=== PATIENT | male | born 1935 | race Caucasian/White ===

== ENCOUNTER 2023-10-10 15:47 | Emergency (ER) | payer OTHER ==
[~2023-10-10] VITALS: Ht 180.3 cm; Wt 90.7 kg
[2023-10-10 16:12] LABS: BASOPHILS ABSOLUTE AUTO 0.06 K/mm3 (0.00-0.23); BASOPHILS PERCENT AUTO 1 % (0-2); EOSINOPHILS ABSOLUTE AUTO 0.57 K/mm3 (0.00-0.68); EOSINOPHILS PERCENT AUTO 7 % (0-6); Hematocrit 31.8 % (37.0-53.0); Hemoglobin 10.8 g/dL (13.5-17.5); IMMATURE GRAN ABSOLUTE AUTO 0.09 K/mm3 (0.00-0.10); IMMATURE GRAN PERCENT AUTO 1 % (0-1); LYMPHOCYTES ABSOLUTE AUTO 1.75 K/mm3 (0.84-5.20); LYMPHOCYTES PERCENT AUTO 23 % (21-46); MONOCYTES ABSOLUTE AUTO 0.87 K/mm3 (0.16-1.47); MONOCYTES PERCENT AUTO 11 % (4-13); Mean Corpuscular HGB 34.7 pg (26.0-34.0); Mean Corpuscular Volume 102 fL (80-100); Mean Platelet Volume 9.3 fL (9.1-12.4); NEUTROPHILS ABSOLUTE AUTO 4.44 K/mm3 (1.96-9.15); NEUTROPHILS PERCENT AUTO 57 % (41-73); Platelet Count 240 K/mm3 (150-400); RDW Coefficient Variation 12.9 % (11.7-14.2); RDW Standard Deviation 48.2 fL (35.1-46.3); Red Blood Cell Count 3.11 M/mm3 (4.30-5.90); White Blood Cell Count 7.78 K/mm3 (4.00-11.30)
[2023-10-10 16:32] LABS: Albumin, Blood 3.1 g/dL (3.4-5.0); Bilirubin, Total 0.5 mg/dL (0.1-1.0); Bun/Creatinine Ratio 26.7 (12.0-20.0); Calcium, Blood 9.8 mg/dL (8.5-10.1); Creatinine, Blood 1.61 mg/dL (0.60-1.20); Globulin, Blood 3.2 g/dL (2.2-4.0); Potassium, Blood 3.9 mmol/L (3.5-5.5); Total Protein, Blood 6.3 g/dL (6.4-8.2)
[2023-10-10 17:54] VITALS: BP 183/53
== END 2023-10-10 18:08 | disposition home or self-care (01) ==
LOC: ER 15:47
PROVIDERS: Emergency Medicine
DX: R55 Syncope and collapse (principal); W01.0XXA Fall on same level from slipping, tripping and stumbling without subsequent striking against object, initial encounter
CPT/HCPCS: 80053; 84484; 85025; 93005; 93010; 99284-25

== ENCOUNTER 2024-03-14 20:08 | Emergency (ER) | payer OTHER ==
[~2024-03-14] VITALS: Ht 177.8 cm; Wt 90.7 kg
[2024-03-14 20:29] LABS: BASOPHILS ABSOLUTE AUTO 0.07 K/mm3 (0.00-0.23); BASOPHILS PERCENT AUTO 1 % (0-2); EOSINOPHILS ABSOLUTE AUTO 0.39 K/mm3 (0.00-0.68); EOSINOPHILS PERCENT AUTO 5 % (0-6); Hematocrit 27.2 % (37.0-53.0); Hemoglobin 9.5 g/dL (13.5-17.5); IMMATURE GRAN ABSOLUTE AUTO 0.08 K/mm3 (0.00-0.10); IMMATURE GRAN PERCENT AUTO 1 % (0-1); LYMPHOCYTES ABSOLUTE AUTO 1.62 K/mm3 (0.84-5.20); LYMPHOCYTES PERCENT AUTO 20 % (21-46); MONOCYTES ABSOLUTE AUTO 0.79 K/mm3 (0.16-1.47); MONOCYTES PERCENT AUTO 10 % (4-13); Mean Corpuscular HGB 36.1 pg (26.0-34.0); Mean Corpuscular HGB Conc 34.9 g/dL (31.5-36.5); Mean Corpuscular Volume 103 fL (80-100); Mean Platelet Volume 8.8 fL (9.1-12.4); NEUTROPHILS ABSOLUTE AUTO 5.06 K/mm3 (1.96-9.15); NEUTROPHILS PERCENT AUTO 63 % (41-73); Platelet Count 260 K/mm3 (150-400); RDW Coefficient Variation 12.7 % (11.7-14.2); Red Blood Cell Count 2.63 M/mm3 (4.30-5.90); White Blood Cell Count 8.01 K/mm3 (4.00-11.30)
[2024-03-14] MEDS ORDERED: LOPE2C PO (20:31)
[2024-03-14] MEDS ORDERED: FOLI1 PO (20:32)
[2024-03-14] MEDS ORDERED: GUAI600T33 PO (20:32)
[2024-03-14] MEDS ORDERED: BUDESONIDE EC3 M1 PO (20:34)
[2024-03-14] MEDS ORDERED: VITAMIN D32000 UNI1 PO (20:35)
[2024-03-14] MEDS ORDERED: B-12500 MC2 PO (20:36)
[2024-03-14] MEDS ORDERED: ASCO500 PO (20:36)
[2024-03-14 20:48] LABS: Albumin, Blood 3.3 g/dL (3.4-5.0); Albumin/Globulin Ratio 1.1 (0.8-1.8); Bilirubin, Total 0.3 mg/dL (0.1-1.0); Bun/Creatinine Ratio 28.5 (12.0-20.0); Calcium, Blood 8.7 mg/dL (8.5-10.1); Creatinine, Blood 1.58 mg/dL (0.60-1.20); Globulin, Blood 2.9 g/dL (2.2-4.0); Potassium, Blood 4.3 mmol/L (3.5-5.5); Total Protein, Blood 6.2 g/dL (6.4-8.2)
[2024-03-14] MEDS ORDERED: Acetaminophen 500 MG Tab PO ONE (23:05)
[2024-03-14 23:25] VITALS: BP 145/69
== END 2024-03-14 23:27 | disposition home or self-care (01) ==
LOC: ER 20:08
PROVIDERS: Emergency Medicine
DX: S51.811A Laceration without foreign body of right forearm, initial encounter (principal); S00.01XA Abrasion of scalp, initial encounter; W18.30XA Fall on same level, unspecified, initial encounter; Z88.8 Allergy status to other drugs, medicaments and biological substances; Z79.899 Other long term (current) drug therapy; I10 Essential (primary) hypertension
CPT/HCPCS: 70450; 72125; 73080; 73110; 80053; 85025; 93005; 93010; 99285-25; A9270

== ENCOUNTER 2024-10-28 13:29 | Emergency (ER) | payer OTHER ==
[~2024-10-28] VITALS: Ht 167.6 cm; Wt 70.3 kg
[~2024-10-28 13:29] MED LIST: ASCO500 PO; B-12500 MC2 PO; BUDESONIDE EC3 M1 PO; FOLI1 PO; GUAI600T33 PO; LOPE2C PO; VITAMIN D32000 UNI1 PO
[2024-10-28 14:11] LABS: BASOPHILS ABSOLUTE AUTO 0.06 K/mm3 (0.00-0.23); BASOPHILS PERCENT AUTO 1 % (0-2); EOSINOPHILS ABSOLUTE AUTO 0.53 K/mm3 (0.00-0.68); EOSINOPHILS PERCENT AUTO 8 % (0-6); Hematocrit 30.2 % (37.0-53.0); Hemoglobin 10.4 g/dL (13.5-17.5); IMMATURE GRAN ABSOLUTE AUTO 0.07 K/mm3 (0.00-0.10); IMMATURE GRAN PERCENT AUTO 1 % (0-1); LYMPHOCYTES ABSOLUTE AUTO 1.19 K/mm3 (0.84-5.20); LYMPHOCYTES PERCENT AUTO 17 % (21-46); MONOCYTES ABSOLUTE AUTO 0.84 K/mm3 (0.16-1.47); MONOCYTES PERCENT AUTO 12 % (4-13); Mean Corpuscular HGB 35.7 pg (26.0-34.0); Mean Corpuscular HGB Conc 34.4 g/dL (31.5-36.5); Mean Corpuscular Volume 104 fL (80-100); Mean Platelet Volume 9.2 fL (9.1-12.4); NEUTROPHILS ABSOLUTE AUTO 4.42 K/mm3 (1.96-9.15); NEUTROPHILS PERCENT AUTO 62 % (41-73); Platelet Count 315 K/mm3 (150-400); RDW Coefficient Variation 13.3 % (11.7-14.2); RDW Standard Deviation 50.5 fL (35.1-46.3); Red Blood Cell Count 2.91 M/mm3 (4.30-5.90); White Blood Cell Count 7.11 K/mm3 (4.00-11.30)
[2024-10-28 14:35] LABS: Albumin, Blood 3.1 g/dL (3.4-5.0); Bilirubin, Total 0.3 mg/dL (0.1-1.0); Bun/Creatinine Ratio 31.7 (12.0-20.0); Calcium, Blood 9.7 mg/dL (8.5-10.1); Creatinine, Blood 1.61 mg/dL (0.60-1.20); Globulin, Blood 3.2 g/dL (2.2-4.0); Potassium, Blood 4.2 mmol/L (3.5-5.5); Total Protein, Blood 6.3 g/dL (6.4-8.2)
[2024-10-28 18:10] LABS: Source, Urine Clean Catch
[2024-10-28 18:16] LABS: Appearance, Urine Clear (Clear); Bilirubin, Urine Neg (Neg); Blood, Urine 5+ (Neg); Color, Urine Yellow (P-Yellow); Glucose Qualitative, Urine Neg (Neg); Ketones, Urine Neg (Neg); Leukocyte Esterase, Urine 1+ (Neg); Nitrite, Urine Neg (Neg); Protein, Urine 2+ (Neg); Urobilinogen, Urine NORM (Normal)
[2024-10-28 18:23] LABS: Bacteria Few /hpf; Red Blood Cells, Urine 25-50 /hpf (0-2); Squamous Epithelial Cells Not Seen /hpf (Few); Transitional Epithelial Cells Rare /hpf (0-Rare)
[2024-10-28 18:30] VITALS: BP 194/75
[2024-10-28] MEDS ORDERED: Cephalexin Monohydrate 500 MG Cap PO ONE (18:35)
[2024-10-28] MEDS ORDERED: CEPH500 PO (18:36)
== END 2024-10-28 18:55 | disposition home or self-care (01) ==
LOC: ER 13:29
PROVIDERS: Physician Assistant
DX: R51.9 Headache, unspecified (principal); M54.2 Cervicalgia; C64.9 Malignant neoplasm of unspecified kidney, except renal pelvis; I10 Essential (primary) hypertension; F03.90 Unspecified dementia, unspecified severity, without behavioral disturbance, psychotic disturbance, mood disturbance, and anxiety; Z88.8 Allergy status to other drugs, medicaments and biological substances; Z79.51 Long term (current) use of inhaled steroids; Z79.899 Other long term (current) drug therapy
CPT/HCPCS: 70450; 80053; 81001; 85025; 87086; 93005; 93010; 93880; 99284-25; A9270

== ENCOUNTER 2024-10-31 21:09 | Inpatient (IN) | payer OTHER ==
[~2024-10-31] VITALS: Ht 175.3 cm; Wt 80.1 kg
[~2024-10-31 21:09] MED LIST changes: +CEPH500 PO
[2024-10-31 22:32] LABS: BASOPHILS ABSOLUTE AUTO 0.08 K/mm3 (0.00-0.23); BASOPHILS PERCENT AUTO 1 % (0-2); EOSINOPHILS ABSOLUTE AUTO 0.11 K/mm3 (0.00-0.68); EOSINOPHILS PERCENT AUTO 1 % (0-6); Hematocrit 32.3 % (37.0-53.0); Hemoglobin 10.9 g/dL (13.5-17.5); IMMATURE GRAN ABSOLUTE AUTO 0.14 K/mm3 (0.00-0.10); IMMATURE GRAN PERCENT AUTO 1 % (0-1); LYMPHOCYTES ABSOLUTE AUTO 1.21 K/mm3 (0.84-5.20); LYMPHOCYTES PERCENT AUTO 11 % (21-46); MONOCYTES ABSOLUTE AUTO 1.17 K/mm3 (0.16-1.47); MONOCYTES PERCENT AUTO 10 % (4-13); Mean Corpuscular HGB 35.2 pg (26.0-34.0); Mean Corpuscular HGB Conc 33.7 g/dL (31.5-36.5); Mean Corpuscular Volume 104 fL (80-100); NEUTROPHILS ABSOLUTE AUTO 8.77 K/mm3 (1.96-9.15); NEUTROPHILS PERCENT AUTO 76 % (41-73); Platelet Count 353 K/mm3 (150-400); RDW Coefficient Variation 13.7 % (11.7-14.2); RDW Standard Deviation 51.7 fL (35.1-46.3); White Blood Cell Count 11.48 K/mm3 (4.00-11.30)
[2024-10-31 23:53] LABS: Albumin/Globulin Ratio 0.9 (0.8-1.8); Bilirubin, Total 0.4 mg/dL (0.1-1.0); Bun/Creatinine Ratio 37.8 (12.0-20.0); Calcium, Blood 10.5 mg/dL (8.5-10.1); Creatinine, Blood 1.43 mg/dL (0.60-1.20); Globulin, Blood 3.5 g/dL (2.2-4.0); Potassium, Blood 4.2 mmol/L (3.5-5.5); Total Protein, Blood 6.5 g/dL (6.4-8.2)
[2024-11-01] LABS: Influenza A, PCR NEGATIVE (NEGATIVE); Influenza B, PCR NEGATIVE (NEGATIVE); Resp Syncytial Virus, PCR NEGATIVE (NEGATIVE); SARS-Cov-2 (COVID-19) PCR, MMC NEGATIVE (NEGATIVE)
[2024-11-01] MEDS ORDERED: NS 1,000 ML IV SCH ×2 (00:25→01:40)
[2024-11-01] MEDS ORDERED: FLU VACC TS2024-25(6MOS UP)/PF 45 MCG/0.5 ML SYRINGE IM ONE (01:35)
[2024-11-01] MEDS ORDERED: Acetaminophen 325 MG TABLET PO PRN (01:35)
[2024-11-01] MEDS ORDERED: Ondansetron HCl 2 MG / ML 2ML Vial IV PRN (01:40)
[2024-11-01] MEDS ORDERED: CefTRIAXone Sodium 1,000 MG in NS 100 ML IV SCH (01:47)
[2024-11-01] MEDS ORDERED: QUEtiapine Fumarate 50 MG TAB PO SCH (01:52)
[2024-11-01 06:00] LABS: Albumin, Blood 2.9 g/dL (3.4-5.0); Bilirubin, Total 0.4 mg/dL (0.1-1.0); Bun/Creatinine Ratio 37.1 (12.0-20.0); Calcium, Blood 10.1 mg/dL (8.5-10.1); Creatinine, Blood 1.43 mg/dL (0.60-1.20); Globulin, Blood 2.9 g/dL (2.2-4.0); Potassium, Blood 3.8 mmol/L (3.5-5.5); Total Protein, Blood 5.8 g/dL (6.4-8.2)
[2024-11-01 06:04] LABS: BASOPHILS ABSOLUTE AUTO 0.09 K/mm3 (0.00-0.23); BASOPHILS PERCENT AUTO 1 % (0-2); EOSINOPHILS ABSOLUTE AUTO 0.04 K/mm3 (0.00-0.68); EOSINOPHILS PERCENT AUTO 1 % (0-6); Hematocrit 33.2 % (37.0-53.0); Hemoglobin 11.4 g/dL (13.5-17.5); IMMATURE GRAN ABSOLUTE AUTO 0.09 K/mm3 (0.00-0.10); IMMATURE GRAN PERCENT AUTO 1 % (0-1); LYMPHOCYTES ABSOLUTE AUTO 1.35 K/mm3 (0.84-5.20); LYMPHOCYTES PERCENT AUTO 16 % (21-46); MONOCYTES ABSOLUTE AUTO 0.93 K/mm3 (0.16-1.47); MONOCYTES PERCENT AUTO 11 % (4-13); Mean Corpuscular HGB 35.5 pg (26.0-34.0); Mean Corpuscular HGB Conc 34.3 g/dL (31.5-36.5); Mean Corpuscular Volume 103 fL (80-100); NEUTROPHILS ABSOLUTE AUTO 6.21 K/mm3 (1.96-9.15); NEUTROPHILS PERCENT AUTO 71 % (41-73); RDW Coefficient Variation 13.8 % (11.7-14.2); RDW Standard Deviation 51.8 fL (35.1-46.3); Red Blood Cell Count 3.21 M/mm3 (4.30-5.90); White Blood Cell Count 8.71 K/mm3 (4.00-11.30)
[2024-11-01 07:10] LABS: Source, Urine Clean Catch
[2024-11-01 07:16] LABS: Appearance, Urine Hazy (Clear); Bilirubin, Urine Neg (Neg); Blood, Urine 5+ (Neg); Glucose Qualitative, Urine Neg (Neg); Ketones, Urine Neg (Neg); Leukocyte Esterase, Urine 1+ (Neg); Nitrite, Urine Neg (Neg); Protein, Urine 2+ (Neg); Specific Gravity, Urine 1.015 (1.003-1.022); Urobilinogen, Urine NORM (Normal)
[2024-11-01 07:33] LABS: Color, Urine Pale Yellow (P-Yellow)
[2024-11-01 07:40] LABS: Bacteria Many /hpf; Squamous Epithelial Cells Rare /hpf (Few)
[2024-11-01 07:42] LABS: Amorphous Light (0-Heavy); Mucus Light (0-Heavy)
[2024-11-01 07:43] LABS: Renal Epithelial Mod /hpf (0-Rare)
[2024-11-01] MEDS ORDERED: FINA5 PO (08:13)
[2024-11-01] MEDS ORDERED: FURO40 PO (08:14)
[2024-11-01] MEDS ORDERED: Diovan320 MG PO (08:15)
[2024-11-01] MEDS ORDERED: Carvedilol12.5 MG PO (08:16)
[2024-11-01] MEDS ORDERED: ALLO300 PO (08:17)
[2024-11-01] MEDS ORDERED: GABA100 PO (08:17)
[2024-11-01] MEDS ORDERED: OMEGA-3 FISH O1 EA21 PO (08:18)
[2024-11-01] MEDS ORDERED: NIAC500 PO (08:18)
[2024-11-01] MEDS ORDERED: Vitamin D1000 UNI1 PO (08:19)
[2024-11-01] MEDS ORDERED: Aspir 8181 MG PO (08:20)
[2024-11-01] MEDS ORDERED: TRAM50 PO (08:22)
[2024-11-01] MEDS ORDERED: DONEPEZIL HCL10 MG PO (08:22)
[2024-11-01] MEDS ORDERED: CHLO25B PO (08:23)
[2024-11-01] MEDS ORDERED: SERT50 PO (08:23)
[2024-11-01] MEDS ORDERED: FAMO20 PO (08:23)
[2024-11-01] MEDS ORDERED: Enoxaparin 40 MG/0.4 ML SYR SC SCH (09:00)
[2024-11-01] MEDS ORDERED: Polyethylene Glycol 3350 17 gm PO SCH (12:00)
[2024-11-01 12:49] VITALS: BP 169/74
[2024-11-01] MEDS ORDERED: Tamsulosin HCl 0.4 MG Cap PO SCH (13:00)
[2024-11-01] MEDS ORDERED: ALBU90OI INH (13:34)
[2024-11-01] MEDS ORDERED: Hytrin2 MG PO (13:37)
[2024-11-01] MEDS ORDERED: AMLO10 PO (13:37)
[2024-11-01] MEDS ORDERED: LIDO700A20 TOP (13:38)
[2024-11-01] MEDS ORDERED: RED YEAST RICE55 MG PO (13:38)
[2024-11-01 16:22] VITALS: BP 164/74
[2024-11-01] MEDS ORDERED: Furosemide 10 MG/ML 4ML Vial IV SCH (17:00)
--- NOTE | 2024-11-01 17:49 | NUR ---
1237- PT ARRIVED ON MEDICAL FLOOR IN STABLE CONDITION.
--- NOTE | 2024-11-01 17:49 | NUR ---
1130- RECEIVED REPORT FROM BERNARDO BONILLA RN.
--- NOTE | 2024-11-01 18:33 | NUR ---
SUMMARY- AAOX1. PALA. NO COMPLAINTS OF PAIN. X3 EPISODES OF BIGEMINY THIS SHIFT. MD HERRERA AWARE. DE LA TORRE PLACED FOR ACUTE RETENTION. BEDREST. PT ON 2L DUE TO LABORED BREATHING.
[2024-11-01 22:12] VITALS: BP 128/75
[2024-11-01] MEDS ORDERED: LORazepam 2 MG/ML 1ML Injection IV ONE (22:20)
[2024-11-01] MEDS ORDERED: DiphenhydrAMINE HCl 50 MG/ML 1ML Vial IV ONE (22:20)
[2024-11-01] MEDS ORDERED: Donepezil HCl 5 MG Tab PO SCH (22:20)
[2024-11-01 23:08] VITALS: BP 151/116
--- NOTE | 2024-11-01 23:14 | NUR ---
NOTIFIED BY DESIGNER/WRITER THAT PT HR SINUS TACH IN 130'S-140'S. PT ATTEMPTING OOB CONTINOUSLY. BP STABLE, BUT HR 140'S WHEN VS CHECKED. HOSPITALIST NOTIFIED AND ORDERS GIVEN FOR ATIVAN IV 1 MG X 1, AND BENADRYL IV 15 MG X 1 TO HELP CALM PT DOWN, THEN REASSESS VS.
--- NOTE | 2024-11-01 23:16 | NUR ---
AFTER GIVING PT IV ATIVAN/BENADRYL TO CALM AGITATION. PT HR CONTINUES TO BE SINUS TACH IN 130'S-140'S AND BP INCREASEED TO 155/116 WITH PT CONTINUING TO ATTEMPT OOB UNSAFE. PT O2 98% ON 2L/NC. HOSPITALIST NOTIFIED OF CHANGES AND WILL REVIEW CHART FOR FURTHER INTERVENTIONS.
[2024-11-01] MEDS ORDERED: Haloperidol Lactate Inj. 5 MG/ML Injection IV ONE (23:30)
[2024-11-02] VITALS (19 sets, daily range): BP systolic 88–167; BP diastolic 51–108
[2024-11-02] MEDS ORDERED: LORazepam 2 MG/ML 1ML Injection IV ONE
[2024-11-02] MEDS ORDERED: NS 1,000 ML IV SCH (00:25)
[2024-11-02 00:30] LABS: Base Excess Venous 0 mmol/L; Bicarbonate Venous 24.6 mmol/L (24.0-30.0); PCO2 Venous 38.2 mmHg (38-42); pH Blood Venous 7.42 (7.34-7.37)
[2024-11-02 00:40] LABS: BASOPHILS ABSOLUTE AUTO 0.09 K/mm3 (0.00-0.23); BASOPHILS PERCENT AUTO 1 % (0-2); EOSINOPHILS ABSOLUTE AUTO 0.12 K/mm3 (0.00-0.68); EOSINOPHILS PERCENT AUTO 1 % (0-6); Hematocrit 31.9 % (37.0-53.0); Hemoglobin 10.7 g/dL (13.5-17.5); IMMATURE GRAN ABSOLUTE AUTO 0.13 K/mm3 (0.00-0.10); IMMATURE GRAN PERCENT AUTO 1 % (0-1); LYMPHOCYTES ABSOLUTE AUTO 1.47 K/mm3 (0.84-5.20); LYMPHOCYTES PERCENT AUTO 11 % (21-46); MONOCYTES PERCENT AUTO 15 % (4-13); Mean Corpuscular HGB 34.7 pg (26.0-34.0); Mean Corpuscular HGB Conc 33.5 g/dL (31.5-36.5); Mean Corpuscular Volume 104 fL (80-100); Mean Platelet Volume 9.5 fL (9.1-12.4); NEUTROPHILS ABSOLUTE AUTO 9.41 K/mm3 (1.96-9.15); NEUTROPHILS PERCENT AUTO 72 % (41-73); Platelet Count 355 K/mm3 (150-400); RDW Standard Deviation 52.5 fL (35.1-46.3); Red Blood Cell Count 3.08 M/mm3 (4.30-5.90); White Blood Cell Count 13.12 K/mm3 (4.00-11.30)
[2024-11-02 00:59] LABS: Albumin, Blood 2.8 g/dL (3.4-5.0); Albumin/Globulin Ratio 0.9 (0.8-1.8); Bilirubin, Total 0.3 mg/dL (0.1-1.0); Bun/Creatinine Ratio 33.7 (12.0-20.0); Calcium, Blood 10.3 mg/dL (8.5-10.1); Creatinine, Blood 1.84 mg/dL (0.60-1.20); Globulin, Blood 3.1 g/dL (2.2-4.0); Magnesium, Blood 2.2 mg/dL (1.6-2.4); Potassium, Blood 3.8 mmol/L (3.5-5.5); Total Protein, Blood 5.9 g/dL (6.4-8.2)
--- NOTE | 2024-11-02 01:42 | NUR ---
GAVE REPORT TO [facility] 09 NURSE @ 0140.
--- NOTE | 2024-11-02 01:43 | NUR ---
DR MACEDO CAME TO ASSESS PT AND WANTED CLARIFICATION ABOUT CODE STATUS DUE TO FULL CODE CURRENTLY. CONTACTED PT DAUGHTER IN LAW GARCIA AND SON MICHELLE ABOUT CHANGE IN PT STATUS, PT SON MICHELLE WANTS PT TO BE DNR AT THIS TIME. PT IS ON FACE SHEET AND SON IS NOT. DR MIKE NOTIFIED AND PT CHANGED TO DNR AND WILL TRANSFER TO PCU 09.
--- NOTE | 2024-11-02 02:15 | NUR ---
received pt to room 9 from medical floor, pt drowsy, when awake, pt is agitated. pt placed on bipap, pt attempting to remove. full body audit reveals scabs to both arms, sanches in place draining clear, yellow urine. pts heart rate in the 120's, will continue to monitor
--- NOTE | 2024-11-02 02:24 | NUR ---
CALLED PT DAUGHTER IN LAW GARCIA PACE TO NOTIFY HER AND PT SON MICHELLE THAT THE PT HAD BEEN TRANSFERRED TO PCU 09 AND NUMBER TO CALL CHARGE NURSE STATION.
[2024-11-02] MEDS ORDERED: NS 1,000 ML IV ONE (02:38)
--- NOTE | 2024-11-02 02:38 | NUR ---
TRANSFERRED PT TO [facility] 09 @ 0210 WITH ALL BELONGINGS ON NON REBREATHER @ 4L. RT BRINGING BIPAP V60 SEPERATELY.
--- NOTE | 2024-11-02 02:57 | NUR ---
RAPID RESPONSE CALLED DUE TO SOFT B/P, DR. BARRAZA AND HELLEN IN ROOM, ICU CHARGE NURSE DOMINGO, RESPIRATORY THERAPY IN ROOM. MANUAL B/P 92/58,EKG COMPLETED STAT CHEST X RAY ORDERED, CURRENT BLOOD PRESSURE 122/79, 18 GAUGE IV STARTED, NO IV BOLUS AT THIS TIME PER ORDER UNTIL CHEST XRAY IS READ. PT ALERT AT INTERVALS, WILL CONTINUE TO MONITOR,BI PAP REMAINS IN PLACE
--- NOTE | 2024-11-02 04:20 | NUR ---
PT REFUSING TO KEEP BIPAP ON, PT PLACED ON O2 AT 2 LITERS VIA NASAL CANNULA, O2 SAT 98% AT THIS TIME, WILL CONTINUE TO MONITOR
[2024-11-02 05:17] LABS: Albumin, Blood 2.9 g/dL (3.4-5.0); Albumin/Globulin Ratio 0.9 (0.8-1.8); Bilirubin, Total 0.4 mg/dL (0.1-1.0); Bun/Creatinine Ratio 30.4 (12.0-20.0); Calcium, Blood 10.4 mg/dL (8.5-10.1); Creatinine, Blood 2.04 mg/dL (0.60-1.20); Globulin, Blood 3.2 g/dL (2.2-4.0); Magnesium, Blood 2.2 mg/dL (1.6-2.4); Potassium, Blood 3.9 mmol/L (3.5-5.5); Total Protein, Blood 6.1 g/dL (6.4-8.2)
--- NOTE | 2024-11-02 05:58 | NUR ---
PT ALERT AND ATTEMPTING TO GET OOB, PT EXTREMELY HARD OF HEARING, PTS SISTER IN LAW CALLED FLOOR, UPDATED REGARDING PTS CONDITION. SHE STATES PT DOES NOT TALK, THAT HE HAS SEVERE STUTTERING AND RARELY SAYS A SENTENCE. WILL PASS ON TO AM NURSE. PT REMAINS TACHYCARDIC. O2 AT [address] WITH SATS BETWEEN 96% AND 98%. BED ALARM IN PLACE, WILL CONTINUE TO MONITOR
[2024-11-02] MEDS ORDERED: Enoxaparin 30 MG/0.3 ML SYR SC SCH (09:00)
[2024-11-02] MEDS ORDERED: QUEtiapine Fumarate 25 MG Tab PO PRN (09:05)
[2024-11-02] MEDS ORDERED: TraMADol HCl 50 MG Tab PO PRN (09:15)
[2024-11-02] MEDS ORDERED: Bumetanide 0.25 MG/ML 4ML ViaL IV SCH ×2 (10:00→18:00)
[2024-11-02] MEDS ORDERED: Lidocaine 4% 1 Patch TOP PRN (10:10)
[2024-11-02] MEDS ORDERED: Albuterol HFA200 ACT/6.7 GM INH INH PRN (10:10)
[2024-11-02 14:27] LABS: CHOL/HDL RATIO 5.8; Cholesterol 187 mg/dL (50-200); Free Thyroxine 1.06 ng/dL (0.70-1.60); HDL Cholesterol 32 mg/dL (>39); LDL/HDL RATIO 3.8; Low Density Lipoprotein Chol 122 mg/dL (0-110); Triglycerides 167 mg/dL (30-160); Triiodothyronine, Free 2.06 pg/mL (2.18-3.98); Very Low Density Lipoprot Chol 33 mg/dL (6-32)
--- NOTE | 2024-11-02 16:11 | NUR ---
SPOKE WITH PT'S STU TODAY BY PHONE. SHE TELLS ME THE PATIENT HAS A DEMENTIA DIAGNOSIS WELL KIDNEY CANCER. SHE STATES THE PATIENT TOLD HER A FEW DAYS AGO THAT HE DOESN'T HAVE LONG TO LIVE. STU STATES THIS IS SOMETHING SHE HAS ALSO BEEN WONDERING ABOUT, THE CHANGES HAVE BEEN SO DRAMATIC. SHE STATES SHE ISN'T SURE IF SHE CAN CONTINUE CARING FOR HIM IF HE DOESN'T IMPROVE DRAMATICALLY. WE TALKED ABOUT HOSPICE AN OPTION IF HE CONTINUES TO DECLINE, [facility]. PT IS SUPPOSED TO HAVE [facility] THIS SATURDAY AT [facility], BUT THAT SEEMS UNLIKELY AT THIS TIME. PLAN TO CALL STU AGAIN TOMORROW WITH AN UPDATE. CM, CHARGE NURSE AND PHYSICIAN UPDATED.
[2024-11-02] MEDS ORDERED: Carvedilol 6.25 MG Tab PO SCH (17:00)
--- NOTE | 2024-11-02 17:59 | NUR ---
EOS: PATIENT AT ROUGHLY 1640 WHEN SISTER IN LAW CAME TO VISIT PATIENT BEGAN SLOWLY WAKING UP FROM HIS SOMULENT STATE. PATIENT HAS BEEN A/O TO SELF PLACE PERSON YEAR ABLE TO FOLLOW COMMANDS ABLE TO MOVE ALL EXTREMES HOWEVER VERY WEAK. PATIENT WAS ABLE TO TAKE PILLS VIA APPLESAUCE 1 AT A TIME, IS EXTREMELY HARD OF HEARING. HOSPITALIST WITH INCREASED BUMEX ORDER. TOELRATED ROUGHLY 45% OF MEAL. TOLERATED THIN LIQUIDS VIA STRAW, ALL ORAL INTAKE OBSERVED AND GIVEN BY STAFF. DESPITE PREIVOUS DIURETIC DECREASED URINE OUTPUT BUT OXYGENATION WENT FROM .5L TO RA. CRITICAL TROP OF 7113 DR. GIPSON REPORTED NO NEED TO TREND. DR. HERRERA ALSO AAWRE.
[2024-11-02] MEDS ORDERED: Doxazosin Mesylate 2 MG Tab PO SCH (21:00)
[2024-11-02] MEDS ORDERED: Famotidine 20 MG Tab PO SCH (21:00)
[2024-11-02] MEDS ORDERED: Gabapentin 100 MG Cap PO SCH (21:00)
--- NOTE | 2024-11-02 21:38 | NUR ---
ASSUMPTION OF CARE THIS RN ASSUMED CARE OF PATIENT AT 1900. AROUND 1930 THIS RN WAS ALERTED THAT PATIENT HAD JUST ASPIRATED ON HIS WATER WITH O2 DROPPING DOWN TO THE 70'S, PT WAS PLACED ON 8L VIA [place] NC. AT TIME OF THIS RN ENTERING ROOM PT WAS COUGHING AND BEING SUCTIONED BY REPAIRER ENGINE PRODUCTION. COARSE CRACKLES NOTED T/O. PT BOOSTED AND SAT UP AT 90 DEGREES. AT BEDSIDE. EDUCATED AND PATIENT. PATIENT ALERT AND ORIENTED X2 TO SELF/PLACE. PT THOUGHT THAT WAS HIS MOM. NO TELE EVENTS NOTED, PT CONTINUES TO BE IN SR WITH 1ST DEGREE HB AND BBB IN THE 60'S. BP STABLE. BIPAP AT BEDSIDE. AROUND 2099 PT NOTED TO HAVE IMPROVED WOB WITH CONTINUED TACHYPNEA, TITRATED O2 DOWN TO 1L WITH SPO2 >92%. LS IMPROVED T/O, ONLY MILD CRACKLES NOTED. PT GIVEN MEDS CRUSHED IN APPLESAUCE AND DID WELL. NO THIN LIQUIDS AT THIS TIME. PT EDUCATED. ORAL CARE DONE AFTER APPLESAUCE. PT REPOSITIONED. SCD'S IN PLACE. PILLOWS UNDER LEGS/HIPS/ARMS. SITTER REMAINS AT BEDSIDE. BED ALARM ON. BED IN LOWEST POSITION AND CALL LIGHT WITHIN REACH.
[2024-11-03] VITALS (8 sets, daily range): BP systolic 101–145; BP diastolic 58–83
--- NOTE | 2024-11-03 04:30 | NUR ---
SHIFT SUMMARY SEE PREVIOUS NOTE. PT NOW ON RA WITH SPO2 >92%. LS CLEAR IN UPPERS AND DIM IN BASES. SR WITH 1ST DEGREE HB BBB, HR 70'S. BP STABLE. AFEBRILE. TACHYPNEA NOTED. BIPAP ON STANDBY. PT A&O X0-2. LETHARGIC AT TIMES. MUMBLES ANSWERS THAT ARE NOT ALWAYS UNDERSTANDABLE. SITTER REMAINS AT BEDSIDE. PT ATTEMPTED TO GRAB DE LA TORRE. REPOSITIONING Q2HRS AND PRN. BED IN LOWEST POSITION AND CALL LIGHT WITHIN REACH. THIS RN WILL REPORT ONCOMING DAYSHIFT RN.
[2024-11-03 05:06] LABS: BASOPHILS ABSOLUTE AUTO 0.06 K/mm3 (0.00-0.23); BASOPHILS PERCENT AUTO 1 % (0-2); EOSINOPHILS ABSOLUTE AUTO 0.28 K/mm3 (0.00-0.68); EOSINOPHILS PERCENT AUTO 3 % (0-6); Hematocrit 31.1 % (37.0-53.0); Hemoglobin 10.5 g/dL (13.5-17.5); IMMATURE GRAN ABSOLUTE AUTO 0.12 K/mm3 (0.00-0.10); IMMATURE GRAN PERCENT AUTO 1 % (0-1); LYMPHOCYTES ABSOLUTE AUTO 1.28 K/mm3 (0.84-5.20); LYMPHOCYTES PERCENT AUTO 14 % (21-46); MONOCYTES ABSOLUTE AUTO 1.18 K/mm3 (0.16-1.47); MONOCYTES PERCENT AUTO 13 % (4-13); Mean Corpuscular HGB 35.4 pg (26.0-34.0); Mean Corpuscular HGB Conc 33.8 g/dL (31.5-36.5); Mean Corpuscular Volume 105 fL (80-100); Mean Platelet Volume 10.1 fL (9.1-12.4); NEUTROPHILS ABSOLUTE AUTO 6.08 K/mm3 (1.96-9.15); NEUTROPHILS PERCENT AUTO 68 % (41-73); Platelet Count 310 K/mm3 (150-400); RDW Coefficient Variation 14.2 % (11.7-14.2); RDW Standard Deviation 53.3 fL (35.1-46.3); Red Blood Cell Count 2.97 M/mm3 (4.30-5.90)
[2024-11-03 06:12] LABS: Albumin, Blood 2.7 g/dL (3.4-5.0); Albumin/Globulin Ratio 0.9 (0.8-1.8); Bilirubin, Total 0.4 mg/dL (0.1-1.0); Bun/Creatinine Ratio 32.2 (12.0-20.0); Calcium, Blood 10.2 mg/dL (8.5-10.1); Creatinine, Blood 2.36 mg/dL (0.60-1.20); Potassium, Blood 3.5 mmol/L (3.5-5.5); Total Protein, Blood 5.7 g/dL (6.4-8.2)
--- NOTE | 2024-11-03 07:27 | NUR ---
ASSUMPTION NOT MUCH IMPROVEMENT THROUGH THE NIGHT, INCIDIENT OF ASPIRATION EARLY AT START OF MANAGER ENVIRONMENTAL HEALTH. PATIENT ON RA. NO OBVIOUS SIGNS OF CHEST PAIN STILL X 2 ON A/O DIFFICULTY WITH COMMUNICATION DUE TO HEARING AND A REPORTED STUTTER ON PREVIOUS NIGHT RN. VSS FOR PATIENT. SPO2 >94% STILL VERY DIMINISHED URINE OUTPUT, HOWEVER, DECREASED CRACKLES IN LUNGS. HEART SOUNDS STILL DISTANT. SLOWER BOWEL TONES. DE [place] TORRE FOR ACUTE RETENTION. REPOSITIONING Q1-2H.
[2024-11-03] MEDS ORDERED: Aspirin 81 MG TabEC PO SCH (09:00)
[2024-11-03] MEDS ORDERED: Ascorbic Acid 500 MG Tab PO SCH (09:00)
[2024-11-03] MEDS ORDERED: Omega-3 Acid Ethyl Esters 1,000 MG CAP PO SCH (09:00)
[2024-11-03] MEDS ORDERED: Niacin 500 MG Tab PO SCH (09:00)
[2024-11-03] MEDS ORDERED: Finasteride 5 MG Tab PO SCH (09:00)
[2024-11-03] MEDS ORDERED: Sertraline HCl 50 MG Tab PO SCH (09:00)
[2024-11-03] MEDS ORDERED: Allopurinol 300 MG Tab PO SCH (09:00)
--- NOTE | 2024-11-03 09:10 | NUR ---
TELE CHANGES: RN NOTIFIED OF TELE CHANGES FROM PREVIOUS SHIFT WITH PATIENT, CUSTOMER MANAGER AWRARE. INCREASE TO HR UP TO THE 120'S FROM 80'S. DENIES CHEST PAIN BLOOD PRESSURE 120/55. MONITORING PLAN OF CARE MAY CHANGE. UPDATE TO GIVEN WHEN SHE CALLED AND ASKED FOR UPDATE.
[2024-11-03] MEDS ORDERED: Metoprolol Tartrate 1 MG/ML 5 ML VIAL IV ONE (10:25)
--- NOTE | 2024-11-03 10:30 | NUR ---
INCREASED HEARTRATE: PATIENT HEART RATE CONTINUED TO INCREASE WHILE PROVIDER IN THE ROOM UP TO 150. VERBAL ORDER FOR 1 X 5MG METOPROLOL GIVEN. HEART RATE LOW OF 70 THAN REGULATED AT ABOUT 70-90 VERY DIFFICULT TO SEE RHYTHM WITH INCREASED CURRENTLY SR WITH A LARGE 1HB BIFISUCALR HB CONTINUES. PATIENT CURRENTLY RESTING PLAN OF CARE CONTINUES
--- NOTE | 2024-11-03 12:01 | NUR ---
NO IMPROVEMENT TO MENTATION STILL EXTREMELY WEAK, HAVING DIFFICULTY STILL WITH VERBALIZING NEEDS, POINTER BOARD USED WITH NO IMPROVEMENT. HR STAYING THE THE 70-90 RANGE AFTER PUSH. PATIENT STILL WITH INCREASED RR 20 OR >. SPO2 >94% ON RA. CONFUSED AND AGITATION REMAINS. SELF ONLY AT TIME OF THIS ASSESSMENT.
--- NOTE | 2024-11-03 13:12 | NUR ---
PALIIATIVE CARE: PALLIATIVE CARE AT BEDSIDE SPEAKING WITH , PATIENT REPOSITIONED, VSS FOR PATIENT AT THIS TIME
[2024-11-03] MEDS ORDERED: LORazepam 2 MG/ML 1ML Injection IV PRN (14:50)
[2024-11-03] MEDS ORDERED: Atropine Sulfate 1% Opth Soln 2ML BTL SL PRN (14:55)
[2024-11-03] MEDS ORDERED: Scopolamine Hydrobromide Patch TOP PRN (14:55)
[2024-11-03] MEDS ORDERED: Morphine Sulfate 20 MG/1ML 1 ML Oral Syringe SL PRN (14:55)
[2024-11-03] MEDS ORDERED: Morphine Sulfate 10 MG/ML 1MLSYR IV PRN (14:55)
[2024-11-03] MEDS ORDERED: LORazepam 1 MG Tab PO PRN (14:55)
--- NOTE | 2024-11-03 15:05 | NUR ---
MET WITH PT AND AT BEDSIDE. THE PATIENT IS UNABLE TO ANSWER QUESTIONS APPROPRIATELY, AND STATES SHE HAS DECIDED ON COMFORT CARE. SHE STATES SHE SPOKE WITH THE PATIENT'S CHILDREN WELL, AND THEY ALL AGREE TO CHANGE PT'S STATUS TO COMFORT CARE, AND REQUEST SEEKING PLACEMENT WITH HOSPICE. THE PATIENT IS A , SO CAN BE PLACED AT [facility], OR ON HOSPICE. PHYSICIAN AWARE, PLACING CC ORDERS. CM TO FOLLOW UP WITH PLACEMENT.
--- NOTE | 2024-11-03 18:37 | NUR ---
EOS: NO SIGNIFICANT CHANGE FROM PALLIATIVE NOTE. FAMILY WAS PRESENT WITH PATIENT MOST OF THE DAY. LEFT AROUND 1700. PATIENT IS CURRENLTY RESTING, MEDICATED FOR WOB AND GENERALIZED PAIN WITH 1 MG MORPHINE EARLIER IN THE DAY. NO OBVIOUS SIGNS OF CHEST PAIN, REPOSTIONED VERY FREQUENTLY TO HELP WITH AGITATION AND ANXIETY. PATIENT RR IS 18-22. NEW PLAN OF CARE CONTINUES.
--- NOTE | 2024-11-03 21:52 | NUR ---
[facility] of Care: REPORT RECEIVED FROM DAY RN. PATIENT IS ASLEEP. NO FAMILY IN ROOM. STATUS CHANGED TO COMFORT CARE TODAY. CONTINUE CARE
--- NOTE | 2024-11-04 06:42 | NUR ---
PATIENT REMAINS COMFORT CARE. NO FAMILY PRESENT DURING THE NIGHT. PATIENT RESTLESS AT BEGINNING OF SHIFT. 1 MG ATIVAN GIVEN IV. PATIENT APPEARED TO HAVE RESTED WELL AFTER THAT. DE LA TORRE CATHETER PATENT. TURN AND REPOSITIONED EVERY TWO HOURS. CONTINUE CARE
--- NOTE | 2024-11-04 07:18 | NUR ---
Bedside report received from CHUN Medina. Pt appears to be comfortably sleeping, supine in bed. Respirations are even and unlabored. He does not wake up readily to conversation; RN said that he was given ativan 1 mg IV for restlessness.
--- NOTE | 2024-11-04 08:40 | NUR ---
0745 Oral care was done and thin layer of dry yellow cast removed from the soft palate, mouth was freshened up and mouth moisturizer was applied. Pt appeared to tolerate it well. He is not responsive and appears to be confused, not following directions.
--- NOTE | 2024-11-04 08:56 | NUR ---
RECIEVED REPORT FROM
--- NOTE | 2024-11-04 10:17 | NUR ---
0945-TRANSFER PT ARRIVED TO ROOM EYES CLOSED AND BREATHING. THIS RN ATTEMPTED TO WAKE PT UP, PT WAS UNAROUABLE. ASCULTATED LUNG SOUNDS, DIMINISHED IN ALL CHUNG. DE [place] TORRE INTACT AND DRAINING TO GRAVITY. ON ASSESSMENT, PT DOES APPEAR TO HAVE MEPILEX ON HEELS. PT IS COMFORT CARE. NO REPORT OF COCCYX WOUND FROM METER READERS SUPERVISOR.
[2024-11-04] MEDS ORDERED: Morphine Sulfate 20 MG/1ML 1 ML Oral Syringe SL PRN (12:00)
--- NOTE | 2024-11-04 12:11 | NUR ---
PT WAS TRYING TO GET OUT OF BED THIS PARKING ENFORCER REPOSITIONED PT AND RAISED HOB PT SEEMS TO BE AGGITATED THIS PARKING ENFORCER ASKED IF PT NEEDED BEDPAN OR TO USE THE RESTROOM PT STATED NO THIS PARKING ENFORCER OFFERED WATER SPONGE TO MOISTEN MOUTH MOISTENED LIPS FAMILY IN ROOM WITH PT AT BEDSIDE NURSE NOTIFIED
--- NOTE | 2024-11-04 17:25 | NUR ---
SHIFT SUMMARY UNABLE TO ASSESS ORIENTATION, PT BECOMES RESTLESS, MEDICATING PER EMAR. DE [place] T[place] INTACT. SUPPOSED TO BE GOING TO [facility] OR [facility] ONCE AVAILABLE, ON COMFORT CARE MEASURES. PERFORMING ORAL HYGIENE WHEN GIVING MEDICATION. BED ALARM ON. BED IN LOWEST POSITION, CALL LIGHT WITHIN REACH.
--- NOTE | 2024-11-05 04:33 | NUR ---
NURSING NOTE: PT PASSED AT 0352 WHILE CARE BEING GIVEN. CONFIRMED PASSING WITH CHARGE NURSE AND PROVIDER NOTIFIED. CALLED AND EXPRESSED THAT THEY DID NOT WANT TO VISIT IN THE HOSPITAL AND THAT THEY DID NOT HAVE A HOME PLANNED. [facility] NEXT TO TAKE PATIENT. WHEN ATTEMPTING TO CALL TO TELL HER OF HIS PLACEMENT SHE DID NOT SENIOR MOBILE DEVELOPER AND UNABLE TO LEAVE VOICEMAIL. WILL ATTEMPT TO CONTACT AT A LATER TIME.
--- NOTE | 2024-11-05 04:59 | NUR ---
SHIFT SUMMARY: PT AOX0 ARROUSABLE BY VERBAL STIMULI, WILL OPEN EYES BUT IS STARING AT THE CEILING, NOT ATTEMPTING TO RESPOND. OCCASIONALLY ATTEMPTED TO PULL AT LINES AND BRIEF. SLOWLY MOVED LEGS OUT OF BED, PLACED BACK IN BED AND REPOSITIONED. BED ALARM ON. PT WORK OF BREATHING INCREASING, RETRACTIONS NOTED AND MEDICATED PER EMR. WET BREATHING SOUNDS AND GARGLE NOTED, MEDICATED WITH ATROPINE WHICH SEEMED TO HELP. @0352 PT PASSED WHILE PERFORMING PT CARE. SEE NURSING NOTE FOR DETAILS. NEXT OF KIN, CHARGE, AND PROVIDER NOTIFIED. IV'S AND DE LA TORRE REMOVED. AWAITING HOME TO COME ENGINEER STATION MAINLINE THE PT. BELONGINGS GATHERED. CONTINUING CARE.
== END 2024-11-05 06:02 | DRG 91 ==
LOC: ER 21:09 → PCU 21:10 → ERHOLD 21:10 → MEDS 11-01 12:37 → PCU 11-01 19:31 → MEDS 11-01 22:32 → PCU 11-02 02:01 → MEDS 11-04 09:34
PROVIDERS: Internal Medicine; Student in an Organized Health Care Education/Training Program; ADMIT Internal Medicine
PROC: 3E03329 Introduction of Other Anti-infective into Peripheral Vein, Percutaneous Approach (ICD-10-PCS; principal; 2024-10-31)
PROC: 0T9B70Z Drainage of Bladder with Drainage Device, Via Natural or Artificial Opening (ICD-10-PCS; 2024-10-31)
PROC: 5A09357 Assistance with Respiratory Ventilation, Less than 24 Consecutive Hours, Continuous Positive Airway Pressure (ICD-10-PCS; 2024-11-02)
PROC: 5A0935A Assistance with Respiratory Ventilation, Less than 24 Consecutive Hours, High Flow/Velocity Cannula (ICD-10-PCS; 2024-11-02)
DX: G92.8 Other toxic encephalopathy (principal); I50.21 Acute systolic (congestive) heart failure; C64.9 Malignant neoplasm of unspecified kidney, except renal pelvis; F02.811 Dementia in other diseases classified elsewhere, unspecified severity, with agitation; I13.0 Hypertensive heart and chronic kidney disease with heart failure and stage 1 through stage 4 chronic kidney disease, or unspecified chronic kidney disease; N17.9 Acute kidney failure, unspecified; F02.83 Dementia in other diseases classified elsewhere, unspecified severity, with mood disturbance; Z66 Do not resuscitate; Z51.5 Encounter for palliative care; N40.1 Benign prostatic hyperplasia with lower urinary tract symptoms; R33.8 Other retention of urine; K59.00 Constipation, unspecified; T42.4X5A Adverse effect of benzodiazepines, initial encounter; R13.10 Dysphagia, unspecified; G30.9 Alzheimer's disease, unspecified; E78.5 Hyperlipidemia, unspecified; I95.9 Hypotension, unspecified; K21.9 Gastro-esophageal reflux disease without esophagitis; M10.9 Gout, unspecified; N18.30 Chronic kidney disease, stage 3 unspecified; E55.9 Vitamin D deficiency, unspecified; I25.5 Ischemic cardiomyopathy; R74.01 Elevation of levels of liver transaminase levels; Z88.8 Allergy status to other drugs, medicaments and biological substances; Z79.82 Long term (current) use of aspirin; Z79.899 Other long term (current) drug therapy
CPT/HCPCS: 0241U; 36415; 51701; 51798; 71045; 71046; 76705; 80053; 80061; 81001; 82140; 82803; 82947; 83036; 83605; 83690; 83735; 83880; 84100; 84145; 84439; 84443; 84481; 84484; 85025; 87086; 93005; 93010; 94660; 94760; 94762; 96365; 96372-59; 96375; 99285-25; A6590; A9270; C8929; G0378; J0696; J1200; J1630; J1650; J1940; J2060; J2270; J7030; Q9957